=== PATIENT | female | born 1950 | race Caucasian/White ===

== ENCOUNTER → 2024-03-28 10:35 | Outpatient (REF) | payer OTHER, SELFPAY | LOC: RAD 10:35 | PROVIDERS: ATTENDING PHYSICIAN Nurse Practitioner Adult Health | DX: Z87.442 Personal history of urinary calculi (principal) | CPT/HCPCS: 74018 ==

== ENCOUNTER → 2024-06-07 07:21 | Outpatient (REF) | payer OTHER, SELFPAY | LOC: WDC 07:21 | PROVIDERS: ATTENDING PHYSICIAN Nurse Practitioner Adult Health | DX: Z12.31 Encounter for screening mammogram for malignant neoplasm of breast (principal) | CPT/HCPCS: 77063; 77067 ==

== ENCOUNTER → 2025-05-24 12:14 | Outpatient (REF) | payer OTHER, SELFPAY | LOC: HWRAD 12:14 | PROVIDERS: ATTENDING PHYSICIAN Specialist; FAMILY PHYSICIAN Nurse Practitioner Adult Health | DX: N20.0 Calculus of kidney (principal) | CPT/HCPCS: 76775 ==

== ENCOUNTER → 2025-06-10 08:10 | Outpatient (REF) | payer OTHER, SELFPAY | LOC: WDC 08:10 | PROVIDERS: ATTENDING PHYSICIAN Nurse Practitioner Adult Health | DX: Z12.31 Encounter for screening mammogram for malignant neoplasm of breast (principal) | CPT/HCPCS: 77063; 77067 ==